=== PATIENT | male | born 1995 | race Two or more races ===

== ENCOUNTER 2023-02-24 09:11 | Emergency (ER) | payer OTHER ==
[~2023-02-24] VITALS: Ht 175.3 cm; Wt 64.7 kg
[2023-02-24] MEDS ORDERED: ACETAMINOPHEN 325 MG TAB PO ONE (12:30)
[2023-02-24 12:53] VITALS: BP 129/82; PULSE 82; RESP 16; TEMP 97.9; O2SAT 97
== END 2023-02-24 13:03 | disposition home or self-care (01) ==
LOC: ER 09:11
DX: S09.90XA Unspecified injury of head, initial encounter (principal); Z90.49 Acquired absence of other specified parts of digestive tract; W20.8XXA Other cause of strike by thrown, projected or falling object, initial encounter; Y93.89 Activity, other specified; Y92.89 Other specified places as the place of occurrence of the external cause; Y99.0 Civilian activity done for income or pay
CPT/HCPCS: 70450; 72040